=== PATIENT | male | born 1995 | race Caucasian/White ===

== ENCOUNTER 2020-11-02 18:02 | Emergency (ER) | payer BC ==
--- NOTE | 2020-11-02 18:13 | PCM.EKG ---
#1 Interpretation EKG Date: 11/02/20 Time: 18:06 Rhythm: NSR Rate (Beats/Min): 91 [place]: Normal P-Wave: Present QRS: Normal ST-T: Normal (T wave inversion lead III) QT: Normal Comparison: NA - No Prior EKG EKG Interpretation Comments: Sinus Rhythm
[2020-11-02] MEDS ORDERED: Ketorolac 30 MG/ML SDV IVPUSH ONE (18:39)
[2020-11-02] MEDS ORDERED: Sodium Chloride 0.9% 1,000 ML IV ONE (18:39)
[2020-11-02] MEDS ORDERED: Ondansetron 4 MG/2 ML SDV IVPUSH ONE (18:39)
[2020-11-02] MEDS ORDERED: Morphine 2 MG/ML SYRINGE IVPUSH ONE (18:39)
--- NOTE | 2020-11-02 18:40 | PCM.EKG ---
#2 Interpretation EKG Date: 11/02/20 Time: 18:31 Rhythm: NSR Rate (Beats/Min): 103 [place]: Normal P-Wave: Present QRS: Normal ST-T: Normal (T wave inversion III) QT: Normal Comparison: No Change (today) EKG Interpretation Comments: SinuS Tachycardia
--- NOTE | 2020-11-02 19:07 | CR ---
INDICATION: Chest pain, shortness of breath TECHNIQUE: Chest radiograph 1 view on 2 films COMPARISON: None FINDINGS: Mediastinum: The mediastinum is normal in appearance. The heart silhouette is normal in size and morphology. Lung: Both lungs are unremarkable in appearance. No sign of pleural effusion seen. No pneumothorax is identified. Bone and Soft tissue: Unremarkable for age. IMPRESSION: 1. No acute cardiopulmonary disease is seen. Dictated by: Schuyler Arreola MD @ 11/02/2020 19:05:17 (Electronically Signed)
[2020-11-02 19:14] LABS: BLOOD UREA NITROGEN,BUN 10 mg/dL (7.0-18.0); CARBON DIOXIDE,CO2 26.6 mmol/L (21.0-32.0); CHLORIDE,CL 102 mmol/L (98-107); GLUCOSE RANDOM 126 mg/dL (74-106); LIPASE 82 U/L (73-393); POTASSIUM,K 3.4 mmol/L (3.5-5.1); SODIUM,NA 139 mmol/L (136-148)
[2020-11-02] MEDS ORDERED: Alum Hydrox/Mag Hydrox/Simeth 15 ML, Lidocaine 2% 5 ML PO ONE ×2 (20:43)
[2020-11-02 20:52] LABS: CORONAVIRUS COVID-19 NAA NEGATIVE (NEGATIVE); INFLUENZA A NAA NEGATIVE (NEGATIVE); INFLUENZA B NAA NEGATIVE (NEGATIVE)
--- NOTE | 2020-11-02 21:26 | EDM.PDOC ---
ED HPI GENERAL MEDICAL PROBLEM - General Chief Complaint: General Stated Complaint: CHEST PAINS Time Seen by Provider: 11/02/20 18:06 Source of Information: Reports: Patient History Limitations: Reports: No Limitations - History of Present Illness INITIAL COMMENTS - FREE TEXT/NARRATIVE: HISTORY AND PHYSICAL: History of present illness: Patient is a 25-year-old male without any health history who presents emergency room today with concern of nonexertional chest pain that started this morning. Patient states that the pain is coming and going he describes as sharp and worse when he presses on his chest. Patient states that yesterday he was having nausea and vomiting but states that people around above had a GI bug. Patient states that he has not been nauseous or vomiting today. Patient states that he has not taken anything for his symptoms and denies any other associative symptoms. Patient denies any family history of coronary artery disease. Patient denies fever, chills, chest pain, shortness of breath, or cough. Denies headache, neck stiff ness, change in vision, syncope, or near syncope. Denies abdominal pain, diarrhea, constipation, or dysuria. Has not noted any blood in urine or stool. Patient has been eating and drinking appropriately. Review of systems: As per history of present illness and below otherwise all systems reviewed and negative. Past medical history: As per history of present illness and as reviewed below otherwise noncontributory. Surgical history: As per history of present illness and as reviewed below otherwise noncontributory. Social history: See social history for further information Family history: As per history of present illness and as reviewed below otherwise noncontributory. Physical exam: General: Patient is alert, oriented, and in no acute distress. Patient sitting comfortably on exam table. Vitals stable and reviewed by me HEENT: Atraumatic, normocephalic, pupils equal and reactive bilaterally, negative for conjunctival pallor or scleral icterus, mucous membranes moist, TMs normal bilaterally, throat clear, neck supple, nontender, trachea midline. No drooling or trismus noted. No meningeal signs. No hot potato voice noted. Lungs/chest: Patient does have recreation of symptoms with palpation of the mid sternum. Otherwise, clear to auscultation, breath sounds equal bilaterally, chest nontender. Heart: S1S2, regular rate and rhythm without overt murmur Abdomen: Soft, nondistended, nontender. Negative for masses or hepatosplenomegaly. Negative for costovertebral tenderness. Pelvis: Stable nontender. Genitourinary: Deferred. Rectal: Deferred. Skin: Intact, warm, dry. No lesions or rashes noted. Extremities: Atraumatic, negative for cords or calf pain. Neurovascular unremarkable. Neuro: Awake, alert, oriented. Cranial nerves II through XII unremarkable. Cerebellum unremarkable. Motor and sensory unremarkable throughout. Exam nonfocal. Notes: Patient is a 25-year old otherwise healthy male who presents emergency room today with concern of chest pain that started this morning was nonexertional and describes as sharp. On initial exam, patient is vitally stable but does have recreation of pain with palpation over his sternum and appears mildly-moderately uncomfortable. Will perform cardiac evaluation as well as give therapeutics and reassess. See Dr. Dang's dictation for specific EKG interpretation. Otherwise, normal sinus rhythm with no STEMI or acute ischemia. CBC is unremarkable. CMP shows a mildly low potassium at 3.4, mildly elevated glucose at 126, and corrected calcium at 7.8 which is mildly low. Urinalysis is clear. Covid negative. Troponin negative. Chest x-ray shows no acute cardiopulmonary disease. Upon reevaluation of patient, he expresses improvement of his symptoms today with therapeutics in the ED. Strict return precautions thoroughly discussed with patient. Signs and symptoms that were prompt return to the ED thoroughly discussed with patient. Discussed importance for follow-up with a primary care provider. Discussed taking Tums 3 times a day for the next 2 to 3 days with reevaluation of his mildly low calcium with his primary care provider. Voices understanding and is agreeable to plan of care. Denies any further questions or concerns at this time. Diagnostics: CBC, CMP, UA, chest x-ray, troponin, D-dimer, COVID-19, EKG x2 Therapeutics: Toradol, morphine, GI cocktail Prescription: None Impression: Atypical chest pain Hypocalcemia, mild Plan: 1. You can alternate ibuprofen and tylenol as directed for pain and discomfort. 2. Follow up with a primary care provider as discussed. Return to the ED as needed and as discussed. 3. Take OTC TUMS three times a day for 2-3 days with reevaluation of calcium with your primary care provider as discussed. Definitive disposition and diagnosis as appropriate pending reevaluation and review of above. CHest Pain Score (Numeric/FACES): 7 - Related Data Allergies Allergy/AdvReac Type Severity Reaction Status Date / Time amoxicillin Allergy Cannot Verified 11/02/20 18:14 Remember Home Meds: Home Meds buPROPion [buPROPion XL] 150 mg PO BID 11/02/20 [History] Past Medical History - Past Health History Medical/Surgical History: Denies Medical/Surgical History Psychiatric History: Reports: Anxiety, Depression - Infectious Disease History Infectious Disease History: Reports: None - Past Surgical History GI Surgical History: Reports: Appendectomy Social & Family History - Family History Family Medical History: No Pertinent Family History - Tobacco Use Tobacco Use Status *Q: Never Tobacco User - Caffeine Use Caffeine Use: Reports: None - Recreational Drug Use Recreational Drug Use: No ED ROS GENERAL - Review of Systems Review Of Systems: Comprehensive ROS is negative, except as noted in HPI. ED EXAM, GENERAL - Physical Exam Exam: See Below (see dictation) Course - Vital Signs Last Recorded V/S: Last Vital Signs Temp 97.4 F 11/02/20 18:15 Pulse 79 11/02/20 21:34 Resp 18 11/02/20 21:34 BP 118/58 L 11/02/20 21:34 Pulse Ox 96 11/02/20 21:34 - Orders/Labs/Meds Labs: Laboratory Tests 11/02/20 11/02/20 11/02/20 Range/Units 18:05 18:33 18:33 WBC 5.75 (4.0-11.0) K/uL RBC 4.84 (4.50-5.90) M/uL Hgb 15.0 (13.0-17.0) g/dL Hct 43.0 (38.0-50.0) % MCV 88.8 (80.0-98.0) fL MCH 31.0 (27.0-32.0) pg MCHC 34.9 (31.0-37.0) g/dL RDW Std Deviation 40.2 (28.0-62.0) fl RDW Coeff of Kash 13 (11.0-15.0) % Plt Count 214 (150-400) K/uL MPV 10.20 (7.40-12.00) fL Neut % (Auto) 62.2 (48.0-80.0) % Lymph % (Auto) 22.8 (16.0-40.0) % Nolan % (Auto) 13.9 (0.0-15.0) % Eos % (Auto) 0.9 (0.0-7.0) % Baso % (Auto) 0.2 (0.0-1.5) % Neut # (Auto) 3.6 (1.4-5.7) K/uL Lymph # (Auto) 1.3 (0.6-2.4) K/uL Nolan # (Auto) 0.8 (0.0-0.8) K/uL Eos # (Auto) 0.1 (0.0-0.7) K/uL Baso # (Auto) 0.0 (0.0-0.1) K/uL Nucleated RBC % 0.0 /100WBC Nucleated RBCs # 0 K/uL D-Dimer, Quantitative < 0.19 (0.0-0.50) mg/L FEU Sodium 139 (136-148) mmol/L Potassium 3.4 L (3.5-5.1) mmol/L Chloride 102 (98-107) mmol/L Carbon Dioxide 26.6 (21.0-32.0) mmol/L BUN 10 (7.0-18.0) mg/dL Creatinine 1.0 (0.8-1.3) mg/dL Est Cr Clr Drug Dosing 125.40 mL/min Estimated GFR (MDRD) > 60.0 ml/min Glucose 126 H (74-106) mg/dL Calcium 8.3 L (8.5-10.1) mg/dL Total Bilirubin 0.7 (0.2-1.0) mg/dL AST 13 L (15-37) IU/L ALT 22 (14-63) IU/L Alkaline Phosphatase 69 (46-116) U/L Troponin I < 0.050 (0.000-0.056) ng/mL Total Protein 7.7 (6.4-8.2) g/dL Albumin 4.0 (3.4-5.0) g/dL Globulin 3.7 (2.6-4.0) g/dL Albumin/Globulin Ratio 1.1 (0.9-1.6) Lipase 82 (73-393) U/L Urine Color Urine Appearance Urine pH (5.0-8.0) Ur Specific Byars (1.001-1.035) Urine Protein (NEGATIVE) mg/dL Urine Glucose (UA) (NEGATIVE) mg/dL Urine Ketones (NEGATIVE) mg/dL Urine Occult Blood (NEGATIVE) Urine Nitrite (NEGATIVE) Urine Bilirubin (NEGATIVE) Urine Urobilinogen (<2.0) EU/dL Ur Leukocyte Esterase (NEGATIVE) Influenza Type A RNA (NEGATIVE) Influenza Type B RNA (NEGATIVE) SARS-CoV-2 RNA (HUSSAIN) (NEGATIVE) 11/02/20 11/02/20 Range/Units 19:04 20:10 WBC (4.0-11.0) K/uL RBC (4.50-5.90) M/uL Hgb (13.0-17.0) g/dL Hct (38.0-50.0) % MCV (80.0-98.0) fL MCH (27.0-32.0) pg MCHC (31.0-37.0) g/dL RDW Std Deviation (28.0-62.0) fl RDW Coeff of Kash (11.0-15.0) % Plt Count (150-400) K/uL MPV (7.40-12.00) fL Neut % (Auto) (48.0-80.0) % Lymph % (Auto) (16.0-40.0) % Nolan % (Auto) (0.0-15.0) % Eos % (Auto) (0.0-7.0) % Baso % (Auto) (0.0-1.5) % Neut # (Auto) (1.4-5.7) K/uL Lymph # (Auto) (0.6-2.4) K/uL Nolan # (Auto) (0.0-0.8) K/uL Eos # (Auto) (0.0-0.7) K/uL Baso # (Auto) (0.0-0.1) K/uL Nucleated RBC % /100WBC Nucleated RBCs # K/uL D-Dimer, Quantitative (0.0-0.50) mg/L FEU Sodium (136-148) mmol/L Potassium (3.5-5.1) mmol/L Chloride (98-107) mmol/L Carbon Dioxide (21.0-32.0) mmol/L BUN (7.0-18.0) mg/dL Creatinine (0.8-1.3) mg/dL Est Cr Clr Drug Dosing mL/min Estimated GFR (MDRD) ml/min Glucose (74-106) mg/dL Calcium (8.5-10.1) mg/dL Total Bilirubin (0.2-1.0) mg/dL AST (15-37) IU/L ALT (14-63) IU/L Alkaline Phosphatase (46-116) U/L Troponin I (0.000-0.056) ng/mL Total Protein (6.4-8.2) g/dL Albumin (3.4-5.0) g/dL Globulin (2.6-4.0) g/dL Albumin/Globulin Ratio (0.9-1.6) Lipase (73-393) U/L Urine Color YELLOW Urine Appearance CLEAR Urine pH 6.0 (5.0-8.0) Ur Specific [place] >= 1.030 (1.001-1.035) Urine Protein NEGATIVE (NEGATIVE) mg/dL Urine Glucose (UA) NEGATIVE (NEGATIVE) mg/dL Urine Ketones NEGATIVE (NEGATIVE) mg/dL Urine Occult Blood NEGATIVE (NEGATIVE) Urine Nitrite NEGATIVE (NEGATIVE) Urine Bilirubin NEGATIVE (NEGATIVE) Urine Urobilinogen 1.0 (<2.0) EU/dL Ur Leukocyte Esterase NEGATIVE (NEGATIVE) Influenza Type A RNA NEGATIVE (NEGATIVE) Influenza Type B RNA NEGATIVE (NEGATIVE) SARS-CoV-2 RNA (HUSSAIN) NEGATIVE (NEGATIVE) Meds: Medications Discontinued Medications Generic Name Dose Route Start Last Admin Trade Name Freq PRN Reason Stop Dose Admin Al Hydroxide/Mg Hydroxide 15 0 ml 11/02/20 20:43 11/02/20 20:55 ml/ Lidocaine HCl 5 ml PO 11/02/20 20:44 20 each ONETIME ONE Administration Sodium Chloride 1,000 mls @ 999 mls/hr 11/02/20 18:39 11/02/20 19:23 Normal Saline IV 11/02/20 19:39 999 mls/hr STAT ONE Administration Ketorolac Tromethamine 30 mg 11/02/20 18:39 11/02/20 19:21 Ketorolac 30 Mg/Ml Sdv IVPUSH 11/02/20 18:40 30 mg ONETIME ONE Administration Morphine Sulfate 2 mg 11/02/20 18:39 11/02/20 19:20 Morphine 2 Mg/Ml Syringe IVPUSH 11/02/20 18:40 2 mg ONETIME ONE Administration Ondansetron HCl 4 mg 11/02/20 18:39 11/02/20 19:21 Ondansetron 4 Mg/2 Ml Sdv IVPUSH 11/02/20 18:40 4 mg ONETIME ONE Administration Departure - Departure Time of Disposition: 21:24 Disposition: Home, Self-Care 01 Clinical Impression: Atypical chest pain, Hypocalcemia - Discharge Information Instructions: Nonspecific Chest Pain, Adult, [id number] Referrals: PCP,None [Primary Care Provider] - Forms: ED Department Discharge Additional Instructions: The following information is given to patients seen in the emergency department who are being discharged to home. This information is to outline your options for follow-up care. We provide all patients seen in our emergency department with a follow-up referral. The need for follow-up, as well as the timing and circumstances, are variable depending upon the specifics of your emergency department visit. If you don't have a primary care physician on staff, we will provide you with a referral. We always advise you to contact your personal physician following an emergency department visit to inform them of the circumstance of the visit and for follow-up with them and/or the need for any referrals to a consulting specialist. The emergency department will also refer you to a specialist when appropriate. This referral assures that you have the opportunity for follow-up care with a specialist. All of these measure are taken in an effort to provide you with optimal care, which includes your follow-up. Under all circumstances we always encourage you to contact your private physician who remains a resource for coordinating your care. When calling for follow-up care, please make the office aware that this follow-up is from your recent emergency room visit. If for any reason you are refused follow-up, please contact the [facility] Department at and asked to speak to the emergency department charge nurse. [facility] [address] [place] [id number] [place] [address] 1. You can alternate ibuprofen and tylenol as directed for pain and discomfort. 2. Follow up with a primary care provider as discussed. Return to the ED as needed and as discussed. 3. Take OTC TUMS three times a day for 2-3 days with reevaluation of calcium with your primary care provider as discussed. Sepsis Event Note (ED) - Evaluation Sepsis Screening Result: No Definite Risk
== END 2020-11-02 21:34 | disposition home or self-care (01) ==
LOC: MW.ED 18:02
DX: R07.89 Other chest pain (principal); E83.51 Hypocalcemia; Z20.822 Contact with and (suspected) exposure to COVID-19; Z88.0 Allergy status to penicillin; Z79.899 Other long term (current) drug therapy
CPT/HCPCS: 0240U; 36415; 71045; 80053; 81003; 83690; 84484; 85025; 85379; 93005; 96374; 96375; 99285; A9270; J1885; J2270; J2405; J7030; 99284